=== PATIENT | male | born 1985 | race Caucasian/White ===

== ENCOUNTER 2022-12-04 18:04 | Emergency (ER) | payer BC ==
--- OUTSIDE RECORDS SUMMARY | 2022-12-04 18:09 | XMS REPORT | Continuity of Care Document ---
:1985 Author Organization [facility] t Address [address] [place] [address] [place] [id number] Care Team Providers Name Role Phone Jesika Alcala Primary Care Physician FOG_A_Provider Attending Clinician Unavailable Benjamin Paul Attending Clinician Unavailable YENIFER MENDIOLA Attending Clinician Unavailable Barrett Cooney Attending Clinician Unavailable Barrett Cooney Attending Clinician [phone] Benjamin Paul Attending Clinician [phone] Ese Abarca MA Attending Clinician Unavailable Nain Moore DO Attending Clinician Brandon Sierra MD Attending Clinician Joe Negrete MD Attending Clinician [phone] VENKAT NDIAYE Attending Clinician Unavailable FOG_A_Provider Admitting Clinician Unavailable Benjamin Paul Admitting Clinician Unavailable Barrett Cooney Admitting Clinician Unavailable Physician, No Primary or Family Admitting Clinician Unavaila ble Payers Payer Name Policy Type Policy Number Effective Date Expiration Date S just[place] [id number] 2021 00:[place]:00 [place] 2 [id number] 2021 00:00:00 Problems Condition Condition Condition Status Onset Resolution Last Treating Co mments Source Name Details Category Date Date Treatment Clinician Date Avascular Avascular Problem Active Aza chance necrosis Necrosis 04-08 Orthop e of the of the 00:00: dic [place] 00 Sports femoral Femoral Medicin epiphysis Epiphysis e Osteoarthr Osteoarthr Problem Active A zalea itis of itis of 04-08 Orthope left hip Left Hip 00:00: dic joint Joint 00 Sports Medicin e No known No known Disease Metho di active active st problems problems Hospit a l Cough Cough Diagnosis Active 2019-10-26 Mem oria Active 04:10:24 l Diagnosis 10/26/2019 Carmen [facility] Major Major Problem Active 2021-12-10 Memor ia depressive depressive 04:10:14 l disorder, disorder, Herm makayla single single episode, episode, unspecifie unspecifie d d Active Problem 12/10/2021 Carmen [facility] Anxiety Anxiety Problem Active 2021-12-10 Me moria disorder, disorder, 04:10:14 l unspecifie unspecifie He rmann d d Active Problem 12/10/2021 Carmen [facility] Obesity Obesity Problem Active 2021-12-10 Me moria (BMI (BMI 04:10:14 l 30-39.9) 30-39.9) Nikhil n Active Problem 12/10/2021 Carmen [facility] Acute URI Acute URI Diagnosis Active 2019-07-28 Memoria Active 05:10:24 l Diagnosis Basilio 07/28/2019 Carmen [facility] Acute Acute Diagnosis Active 2019-07-27 Mem oria left-sided left-sided 05:10:21 l low back low back Nikhil n pain with pain with left-sided left-sided sciatica sciatica Active Diagnosis 07/27/2019 Carmen [facility] Bronchitis Bronchiti Diagnosis Active 2019-10-24 Memoria s Active 04:10:07 l Diagnosis [place] 10/24/2019 Carmen [facility] Sorethroat Sorethroa Diagnosis Active 2019-10-14 Memoria t Active 04:10:02 l Diagnosis [place] 10/14/2019 Carmen [facility] Acute Acute Diagnosis Active 2019-10-14 Me moria non-recurr non-recurr 04:10:02 l ent ent [place] streptococ streptococ rocael rocael tonsilliti tonsilliti s s Active Diagnosis 10/14/2019 Carmen [facility] Tachycardi Tachycard Diagnosis Active 2020-05-26 Memoria a ia Active 04:10:09 l Diagnosis [place] 05/26/2020 Carmen [facility] Major Major Diagnosis Active 2019-07-28 Mem oria depressive depressive 05:10:25 l disorder disorder Nikhil n in partial in partial remission, remission, unspecifie unspecifie d whether d whether recurrent recurrent Active Diagnosis 07/28/2019 Carmen [facility] Acute gout Acute Diagnosis Active 2020-05-26 Memoria of right gout of 04:10:09 l foot, right [place] unspecifie foot, d cause unspecifie d cause Active Diagnosis 05/26/2020 Carmen [facility] Dizziness Dizziness Diagnosis Active 2020-05-07 Memoria Active 04:10:05 l Diagnosis Basilio 05/07/2020 Carmen [facility] Acute Acute Diagnosis Active 2021-12-10 Mem oria sinusitis, sinusitis, 04:10:14 l unspecifie unspecifie He rmann d d Active Diagnosis 12/10/2021 Carmen [facility] Essential Essential Problem Active 2021-12-10 Memoria hypertensi hypertensi 04:10:14 l on on Active Nikhil n Problem 12/10/2021 Carmen [facility] Obstructiv Obstructi Problem Active 2021-12-10 Memoria e sleep ve sleep 04:10:14 l apnea apnea [place] Active Problem 12/10/2021 Carmen [facility] Mixed Mixed Problem Active 2021-12-10 Memor ia hyperlipid hyperlipid 04:10:14 l emia emia Basilio Active Problem 12/10/2021 Carmen [facility] Seasonal Seasonal Diagnosis Active 2021-12-10 Memoria allergic allergic 04:10:14 l rhinitis, rhinitis, Herm makayla unspecifie unspecifie d trigger d trigger Active Diagnosis 12/10/2021 Carmen [facility] Lumbago Lumbago Problem Active 2021-12-10 Me moria with with 04:10:14 l sciatica, sciatica, Herm makayla right side right side Active Problem 12/10/2021 Carmen CARD Other Other Problem Active 2021-12-10 Memor ia chronic chronic 04:10:14 l pain pain Basilio Active Problem 12/10/2021 Carmen [facility] Prediabete Prediabet Diagnosis Active 2021-11-11 Memoria s es Active 04:10:13 l Diagnosis Basilio 11/11/2021 Carmen [facility] Allergies, Adverse Reactions, Alerts Allergy Allergy Status Severity Reaction(s) Onset Inactive Treating Comm ents Source Name Type Date Date Clinician No Known DA Active U 2021-07 [facility] 09-24 [place] [facility] 00:[facility] No Known DA Active U 2021-07 [facility] 2 Clear Allergie 00:00: Scott s 00 [facility] SEASONAL DA Active MO CONGESTION,E 2021-07 HC A ALLERGIE YE WATER - Clear S 00:00: Scott 00 [facility] N.K.D.A. N.K.D.A. Active Info Not Dao kecia Available 4-05 l 00:00: [place] 00 No Known DA Active U [facility]- [place] [facility] 00[facility] Social History Social Habit Start Date Stop Date Quantity Comments Source Sexual orientation 2021-11-13 Heterosexual Meth odist 11:54:26 (finding) Hospital Gender identity [facility] Sex Assigned At [birth year] Gnosticism 00:00:00 00:00:00 Hospital Smoking Status Start Date Stop Date Source Former Smoker [facility] Tobacco smoking consumption [facility] unknown Medications Ordered Filled Start Stop Current Ordering Indication Dosage Frequency Signature Comments Components Source Medication Medication Date Date Medication? Clinician (SIG) Name Name diclofenac- 2021- No [id number] 1{tbl} Q.5D Take 1 [facility] misoprostoL 01-[id number] ([facility] 00:00: 04:59 mouth 2 Hos carolee 50) 50-200 00 :00 (two) l mg-mcg EC times a tablet day for 30 days. diclofenac- 2021- No [id number] 1{tbl} Q.5D Take 1 [facility] misoprostoL 01-[address] ([facility] 00:00: 04:59 mouth 2 Hos carolee 50) 50-200 00 :00 (two) l mg-mcg EC times a tablet day for 30 days. diclofenac- 2021- No [id number] 1{tbl} Q.5D Take 1 [facility] misoprostoL 01-[address] ([facility] 00:00: 04:59 mouth 2 Hos carolee 50) 50-200 00 :00 (two) l mg-mcg EC times a tablet day for 30 days. Naprosyn Yes JESIKA MANNY 1 tablet Memoria 5-16 with food l 04:10: or milk as Basilio 14 needed Fish Oil Yes JESIKA MANNY 1 capsule Memoria 5-16 l 04:10: Basilio Bazan Vitamin C & Yes JESIKA MANNY as Memoria D3/Akanksha 5-16 directed l Hips 04:10: Basilio Bazan Promethazin Yes JESIKA MANNY 5 ml as Memoria e-DM 5-16 needed l 04:10: Basilio Bazan Bromfed DM Yes JESIKA MANNY 5 ml M emoria 5-16 l 04:10: Basilio Bazan Cyclobenzap Yes JESIKA MANNY 1-2 tablet Memoria rine HCl 5-16 as needed l 04:10: Basilio Bazan Nasacort AQ Yes JESIKA MANNY 1 spray in Memoria 5-16 each l 04:10: nostril Basilio BuPROPion Yes JESIKA MANNY TAKE ONE Memoria HCl (XL) 5-16 TABLET BY l 04:10: MOUTH Basilio 14 EVERY MORNING Symbicort Yes JESIKA MANNY 2 puffs Memoria 5-16 l 04:10: Basilio Bazan Tessalon Yes JESIKA MANNY 1 capsule Memoria 5-16 l 04:10: Basilio Bazan Levaquin Yes JESIKA MANNY 1 tab Me moria 5-16 l 04:10: Basilio Bazan Cefdinir Yes JESIKA MANNY 1 capsule Memoria 5-16 l 04:10: Basilio 14 ProAir HFA 0 Yes JESIKA MANNY 2 puffs Memoria 5-16 l 04:10: Basilio BusPIRone 0 Yes JESIKA MANNY 1 tablet Memoria HCl 5-16 l 04:10: Basilio Wellbutrin 0 Yes JESIKA MANNY 1 tablet Memoria XL 5-16 in the l 04:10: morning Basilio 14 Wellbutrin Yes JESIKA MANNY 1 tablet Memoria XL 5-16 in the l 04:10: morning Basilio 14 DASW) Lisinopril Yes JESIKA MANNY TAKE ONE Memoria 5-16 TABLET BY l 04:10: MOUTH [place] 14 DAILY Montelukast Yes JESIKA MANNY TAKE ONE Memoria Sodium 5-16 TABLET BY l 04:10: MOUTH Basilio 14 DAILY Iron Yes JESIKA MANNY 1 tablet Mem oria 5-16 l 04:10: Basilio Rosuvastati Yes JESIKA MANNY TAKE ONE Memoria n Calcium 5-16 TABLET BY l 04:10: MOUTH [place] 14 EVERY NIGHT AT BEDTIME Azelastine 0 Yes JESIKA MANNY 2 puff in Memoria HCl 5-16 each l 04:10: nostril Basilio 14 Medrol Yes JESIKA MANNY as Memor ia (José Miguel) 5-16 directed l 04:10: Basilio Naprosyn Yes JESIKA MANNY 1 tablet Memoria 5-16 with food l 04:10: or milk as [place] needed Fish Oil Yes JESIKA MANNY 1 capsule Memoria 5-16 l 04:10: Basilio 14 Vitamin C & 0 Yes JESIKA MANNY as Memoria D3/Akanksha 5-16 directed l Hips 04:10: Basilio Promethazin Yes JESIKA MANNY 5 ml as Memoria e-DM 5-16 needed l 04:10: Basilio Bromfed DM 0 Yes JESIKA MANNY 5 ml M emoria 5-16 l 04:10: Basilio Cyclobenzap Yes JESIKA MANNY 1-2 tablet Memoria rine HCl 5-16 as needed l 04:10: Basilio Bazan Promethazin 0 Yes JESIKA MANNY 5 ml as Memoria e-DM 5-16 needed l 04:10: Basilio Vitamin C & 0 Yes JESIKA MANNY as Memoria D3/Akanksha 5-16 directed l Hips 04:10: Basilio Bromfed DM 0 Yes JESIKA MANNY 5 ml M emoria 5-16 l 04:10: Basiilo Cyclobenzap Yes JESIKA MANNY 1-2 tablet Memoria rine HCl 5-16 as needed l 04:10: Basilio Nasacort AQ 0 Yes JESIKA MANNY 1 spray in Memoria 5-16 each l 04:10: nostril Basilio Naprosyn Yes JESIKA MANNY 1 tablet Memoria 5-16 with food l 04:10: or milk as Basilio needed Nasacort AQ Yes JESIKA MANNY 1 spray in Memoria 5-16 each l 04:10: nostril Basilio Fish Oil 0 Yes JESIKA MANNY 1 capsule Memoria 5-16 l 04:10: Basilio BuPROPion 0 Yes JESIKA MANNY TAKE ONE Memoria HCl (XL) 5-16 TABLET BY l 04:10: MOUTH Basilio 14 EVERY MORNING Symbicort 2021-0 Yes JESIKA MANNY 2 puffs Memoria 5-16 l 04:10: Basilio Tessalon 0 Yes JESIKA MANNY 1 capsule Memoria 5-16 l 04:10: Basilio Levaquin 0 Yes JESIKA MANNY 1 tab Me moria 5-16 l 04:10: Basilio Cefdinir 0 Yes JESIKA MANNY 1 capsule Memoria 5-16 l 04:10: Basilio BusPIRone 0 Yes JESIKA MANNY 1 tablet Memoria HCl 5-16 l 04:10: Basilio ProAir HFA 0 Yes JESIKA MANNY 2 puffs Memoria 5-16 l 04:10: Basilio BuPROPion 0 Yes JESIKA MANNY TAKE ONE Memoria HCl (XL) 5-16 TABLET BY l 04:10: MOUTH Basilio 14 EVERY MORNING Wellbutrin 0 Yes JESIKA MANNY 1 tablet Memoria XL 5-16 in the l 04:10: morning Wellbutrin 2021-0 Yes JESIKA MANNY 1 tablet Memoria XL 5-16 in the l 04:10: morning DAS) Lisinopril 0 Yes JESIKA MANNY TAKE ONE Memoria 5-16 TABLET BY l 04:10: MOUTH 14 DAILY Montelukast 0 Yes JESIKA MANNY TAKE ONE Memoria Sodium 5-16 TABLET BY l 04:10: MOUTH 14 DAILY Iron 0 Yes JESIKA MANNY 1 tablet Mem oria 5-16 l 04:10: [place] 14 Rosuvastati 0 Yes JESIKA MANNY TAKE ONE Memoria n Calcium 5-16 TABLET BY l 04:10: MOUTH 14 EVERY NIGHT AT BEDTIME Azelastine 0 Yes JESIKA MANNY 2 puff in Memoria HCl 5-16 each l 04:10: nostril 14 Medrol 0 Yes JESIKA MANNY as Memor ia (José Miguel) 5-16 directed l 04:10: Symbicort 0 Yes JESIKA MANNY 2 puffs Memoria 5-16 l 04:10: Tessalon 0 Yes JESIKA MANNY 1 capsule Memoria 5-16 l 04:10: Levaquin 0 Yes JESIKA MANNY 1 tab Me moria 5-16 l 04:10: Cefdinir 0 Yes JESIKA MANNY 1 capsule Memoria 5-16 l 04:10: ProAir HFA 2021-0 Yes JESIKA MANNY 2 puffs Memoria 5-16 l 04:10: BusPIRone 2021-0 Yes JESIKA MANNY 1 tablet Memoria HCl 5-16 l 04:10: Wellbutrin 2021-0 Yes JESIKA MANNY 1 tablet Memoria XL 5-16 in the l 04:10: morning Wellbutrin 2021-0 Yes JESIKA MANNY 1 tablet Memoria XL 5-16 in the l 04:10: morning 14 DASW) Lisinopril 0 Yes JESIKA MANNY TAKE ONE Memoria 5-16 TABLET BY l 04:10: MOUTH 14 DAILY Montelukast 0 Yes JESIKA MANNY TAKE ONE Memoria Sodium 5-16 TABLET BY l 04:10: MOUTH [place] 14 DAILY Iron Yes JESIKA MANNY 1 tablet Mem oria 5-16 l 04:10: [place] 14 Rosuvastati Yes JESIKA MANNY TAKE ONE Memoria n Calcium 5-16 TABLET BY l 04:10: MOUTH [place] 14 EVERY NIGHT AT BEDTIME Azelastine Yes JESIKA MANNY 2 puff in Memoria HCl 5-16 each l 04:10: nostril Basilio 14 Medrol Yes JESIKA MANNY as Memor ia (José Miguel) 5-16 directed l 04:10: [place] 14 docusate 2021- No [id number] 100mg Q.5D Take 1 [facility] sodium 4-29 05-[address] (COLACE) 00:00: 04:59 (100 mg Hospi ta 100 MG 00 :00 total) by l capsule mouth 2 (two) times a day as needed for constipati on for up to 10 days. docusate 2021-2021- No [id number] 100mg Q.5D Take 1 [facility] sodium 4-29 05-[address] (COLACE) 00:00: 04:59 (100 mg Hospi ta 100 MG 00 :00 total) by l capsule mouth 2 (two) times a day as needed for constipati on for up to 10 days. traMADoL 2021-2021- [place] [id number] 50mg Q6H Take 1 Metho di (Ultram) 50 - 05-08 tablet (50 s t mg tablet 00:00: 04:59 mg total) Ho spita 00 :00 by mouth l every 6 (six) hours as needed for moderate pain for up to 8 days .acute pain. traMADoL 2021-2021- No [id number] 50mg Q6H Take 1 Metho di (Ultram) 50 4-29 05-08 tablet (50 s t mg tablet 00:00: 04:59 mg total) Ho spita 00 :00 by mouth l every 6 (six) hours as needed for moderate pain for up to 8 days .acute pain. cephalexin 2021- No [id number] 500mg Q.5D Take 1 [facility] (Keflex) 11-23 05-[address] 500 MG 00:00: 04:59 (500 mg Hospita capsule 00 :00 total) by l mouth 2 (two) times a day for 7 days. cephalexin 2021-0 2021- No [id number] 500mg Q.5D Take 1 [facility] (Keflex) 11-23 05-[address] 500 MG 00:00: 04:59 (500 mg Hospita capsule 00 :00 total) by l mouth 2 (two) times a day for 7 days. Phentermine 2021-0 Yes JESIKA MANNY TAKE ONE Memoria HCl 3-08 TABLET BY l 00:00: MOUTH DAILY Phentermine 2021-0 Yes JESIKA MANNY TAKE ONE Memoria HCl 3-08 TABLET BY l 00:00: MOUTH DAILY Phentermine 2021-0 Yes JESIKA MANNY TAKE ONE Memoria HCl 3-08 TABLET BY l 00:00: MOUTH DAILY Adipex-P 2021-0 Yes JESIKA MANNY 1 tablet Memoria 9-30 l 00:00: Adipex-P 2021-0 Yes JESIKA MANNY 1 tablet Memoria 9-30 l 00:00: Adipex-P 2021-0 Yes JESIKA MANNY 1 tablet Memoria 9-30 l 00:00: Adipex-P 2021-0 Yes JESIKA MANNY 1 tablet Memoria 9-17 l 00:00: Adipex-P 2021-0 Yes JESIKA MANNY 1 tablet Memoria 9-17 l 00:00: Adipex-P 2021-0 Yes JESIKA MANNY 1 tablet Memoria 9-17 l 00:00: Adipex-P 2021-0 Yes JESIKA MANNY 1 tablet Memoria 9-16 l 04:10: Adipex-P 2021-0 Yes JESIKA MANNY 1 tablet Memoria 9-16 l 04:10: Adipex-P 2021-0 Yes JESIKA MANNY 1 tablet Memoria 9-16 l 04:10: Singulair 2021-0 Yes JESIKA MANNY 1 tablet Memoria 8-03 l 04:10: Crestor 2021-0 Yes JESIKA MANNY 1 tablet Memoria 8-03 l 04:10: Adipex-P 2021-0 Yes JESIKA MANNY 1 tablet Memoria 8-03 l 04:10: Singulair 2020-0 Yes JESIKA MANNY 1 tablet Memoria 8-03 l 04:10: Crestor 2020-0 Yes JESIKA MANNY 1 tablet Memoria 8-03 l 04:10: Adipex-P 2020-0 Yes JESIKA MANNY 1 tablet Memoria 8-03 l 04:10: Singulair 2020-0 Yes JESIKA MANNY 1 tablet Memoria 8-03 l 04:10: Crestor 0 Yes JESIKA MANNY 1 tablet Memoria 8-03 l 04:10: Adipex-P 2020-0 Yes JESIKA MANNY 1 tablet Memoria 8-03 l 04:10: Wellbutrin 0 Yes JESIKA MANNY 1 tablet Memoria XL 6-30 in the l 00:00: morning Wellbutrin 0 Yes JESIKA MANNY 1 tablet Memoria XL 6-30 in the l 00:00: morning Wellbutrin 0 Yes JESIKA MANNY 1 tablet Memoria XL 6-30 in the l 00:00: morning ProAir HFA 2020- Yes JESIKA MANNY 2 puffs Memoria 0-30 l 04:10: Iron 2020- Yes JESIKA MANNY 1 tablet Mem oria 0-30 l 04:10: Lisinopril 2020- Yes JESIKA MANNY 1 tablet Memoria 0-30 l 04:10: Lexapro 2020- Yes JESIKA MANNY 1 tablet Memoria 0-30 l 04:10: ProAir HFA 2020- Yes JESIKA MANNY 2 puffs Memoria 0-30 l 04:10: Iron 2020- Yes JESIKA MANNY 1 tablet Mem oria 0-30 l 04:10: Lisinopril 2020- Yes JESIKA MANNY 1 tablet Memoria 0-30 l 04:10: Lexapro 2020- Yes JESIKA MANNY 1 tablet Memoria 0-30 l 04:10: ProAir HFA 2020- Yes JESIKA MANNY 2 puffs Memoria 0-30 l 04:10: Iron 2020-1 Yes JESIKA MANNY 1 tablet Mem oria 0-30 l 04:10: Lisinopril 2020-1 Yes JESIKA MANNY 1 tablet Memoria 0-30 l 04:10: Lexapro 2020- Yes JESIKA MANNY 1 tablet Memoria 0-30 l 04:10: Crestor 2019- Yes JESIKA MANNY 1 tablet Memoria 0-11 l 04:10: Lisinopril 2020- Yes JESIKA MANNY 1 tablet Memoria 0-11 l 04:10: Crestor 2020- Yes JESIKA MANNY 1 tablet Memoria 0-11 l 04:10: Lisinopril 2020- Yes JESIKA MANNY 1 tablet Memoria 0-11 l 04:10: Crestor 2019- Yes JESIKA MANNY 1 tablet Memoria 0-11 l 04:10: Lisinopril 2020- Yes JESIKA MANNY 1 tablet Memoria 0-11 l 04:10: Wellbutrin 2020- Yes JESIKA MANNY 1 tablet Memoria XL 0-02 in the l 00:00: morning Wellbutrin 2020-1 Yes JESIKA MANNY 1 tablet Memoria XL 0-02 in the l 00:00: morning Wellbutrin 2020-1 Yes JESIKA MANNY 1 tablet Memoria XL 0-02 in the l 00:00: morning Lisinopril 2020-0 Yes JESIKA MANNY 1 tablet Memoria 3-19 l 04:10: Lisinopril 2020-0 Yes JESIKA MANNY 1 tablet Memoria 3-19 l 04:10: Lisinopril 2020-0 Yes JESIKA MANNY 1 tablet Memoria 3-19 l 04:10: Iron 2020-0 Yes JESIKA MANNY 1 tablet Mem oria 1-01 l 05:10: Iron 2020-0 Yes JESIKA MANNY 1 tablet Mem oria 1-01 l 05:10: Iron 2020-0 Yes JESIKA MANNY 1 tablet Mem oria 1-01 l 05:10: tramadol 50 tramadol 50 No tramadol Mary mg tablet mg tablet 50 mg Orth ope tablet dic Sports Medicin e acetaminoph acetaminoph No acetaminop Mary en 300 en 300 hen 300 Orthope mg-codeine mg-codeine mg-codeine dic 30 mg 30 mg 30 mg Sports tablet tablet tablet Medicin e albuterol albuterol No albuterol Mary sulfate HFA sulfate HFA sulfate Orthope 90 90 HFA 90 dic mcg/actuati mcg/actuati mcg/actuat Sports on aerosol on aerosol ion Med icin inhaler inhaler aerosol e inhaler aspirin 81 aspirin 81 No aspirin 81 Mary mg mg mg Orthope tablet,james tablet,james tablet,del dic yed release yed release ayed S ports release Medicin e azelastine azelastine No azelastine Mary 137 mcg 137 mcg 137 mcg Orthop e (0.1 %) (0.1 %) (0.1 %) dic nasal spray nasal spray nasal Sports aerosol aerosol spray Medicin aerosol e azithromyci azithromyci No azithromyc Mary n 250 mg n 250 mg in 250 mg Or thope tablet tablet tablet dic Sports Medicin e buspirone buspirone No buspirone Mary 10 mg 10 mg 10 mg Orthope tablet tablet tablet dic Sports Medicin e cyclobenzap cyclobenzap No cyclobenza Mary rine 5 mg rine 5 mg jeanine 5 mg Orthope tablet tablet tablet dic Sports Medicin e diclofenac diclofenac No diclofenac Mary potassium potassium potassium Orthope 50 mg 50 mg 50 mg dic tablet tablet tablet Sports Medicin e doxycycline doxycycline No doxycyclin Mary hyclate 100 hyclate 100 e hyclate Orthope mg capsule mg capsule 100 mg d ic capsule Sports Medicin e hydrocodone hydrocodone No hydrocodon Mary 10 10 e 10 Orthope mg-acetamin mg-acetamin mg-acetami dic ophen 325 ophen 325 nophen 325 Sports mg tablet mg tablet mg tablet Medicin e lisinopril lisinopril No lisinopril Mary 20 mg 20 mg 20 mg [facility] tablet tablet tablet dic Sports Medicin e meloxicam meloxicam No meloxicam Mary 15 mg 15 mg 15 mg [facility] tablet tablet tablet dic Sports Medicin e methocarbam methocarbam No methocarba Mary ol 500 mg ol 500 mg mol 500 mg [facility] tablet tablet tablet dic Sports Medicin e methylpredn methylpredn No methylpred Mary isolone 4 isolone 4 nisolone 4 Orthope mg tablets mg tablets mg tablets dic in a dose in a dose in a dose Sports pack pack pack Medicin e rosuvastati rosuvastati No rosuvastat Mary n 10 mg n 10 mg in 10 mg Ortho pe tablet tablet tablet dic Sports Medicin e sulfamethox sulfamethox No sulfametho Mary azole 800 azole 800 xazole 800 [facility]ope mg-trimetho mg-trimetho mg-trimeth dic prim 160 mg prim 160 mg oprim 160 Sports tablet tablet mg tablet Medici n e tramadol 50 tramadol 50 No tramadol Mary mg tablet mg tablet 50 mg Orth ope tablet dic Sports Medicin e acetaminoph acetaminoph No acetaminop Mary en 300 en 300 hen 300 [facility] mg-codeine mg-codeine mg-codeine dic 30 mg 30 mg 30 mg Sports tablet tablet tablet Medicin e albuterol albuterol No albuterol Mary sulfate HFA sulfate HFA sulfate Orthope 90 90 HFA 90 dic mcg/actuati mcg/actuati mcg/actuat Sports on aerosol on aerosol ion Med icin inhaler inhaler aerosol e inhaler aspirin 81 aspirin 81 No aspirin 81 Mary mg mg mg [facility] tablet,james tablet,james tablet,del dic yed release yed release ayed S ports release Medicin e azelastine azelastine No azelastine Mary 137 mcg 137 mcg 137 mcg Orthop e (0.1 %) (0.1 %) (0.1 %) dic nasal spray nasal spray nasal Sports aerosol aerosol spray Medicin aerosol e azithromyci azithromyci No azithromyc Mary n 250 mg n 250 mg in 250 mg Or thope tablet tablet tablet dic Sports Medicin e buspirone buspirone No buspirone Mary 10 mg 10 mg 10 mg [facility] tablet tablet tablet dic Sports Medicin e cyclobenzap cyclobenzap No cyclobenza Mary rine 5 mg rine 5 mg jeanine 5 mg [facility] tablet tablet tablet dic Sports Medicin e diclofenac diclofenac No diclofenac Mary potassium potassium potassium [facility] 50 mg 50 mg 50 mg dic tablet tablet tablet Sports Medicin e doxycycline doxycycline No doxycyclin Mary hyclate 100 hyclate 100 e hyclate [facility] mg capsule mg capsule 100 mg d ic capsule Sports Medicin e hydrocodone hydrocodone No hydrocodon Mary 10 10 e 10 [facility] mg-acetamin mg-acetamin mg-acetami dic ophen 325 ophen 325 nophen 325 Sports mg tablet mg tablet mg tablet Medicin e lisinopril lisinopril No lisinopril Mary 20 mg 20 mg 20 mg [facility] tablet tablet tablet dic Sports Medicin e meloxicam meloxicam No meloxicam Mary 15 mg 15 mg 15 mg [facility] tablet tablet tablet dic Sports Medicin e methocarbam methocarbam No methocarba Mary ol 500 mg ol 500 mg mol 500 mg [facility] tablet tablet tablet dic Sports Medicin e methylpredn methylpredn No methylpred Mary isolone 4 isolone 4 nisolone 4 [facility] mg tablets mg tablets mg tablets dic in a dose in a dose in a dose Sports pack pack pack Medicin e rosuvastati rosuvastati No rosuvastat Mary n 10 mg n 10 mg in 10 mg Ortho pe tablet tablet tablet dic Sports Medicin e sulfamethox sulfamethox No sulfametho Mary azole 800 azole 800 xazole 800 [facility] mg-trimetho mg-trimetho mg-trimeth dic prim 160 mg prim 160 mg oprim 160 Sports tablet tablet mg tablet Medici n e tramadol 50 tramadol 50 No tramadol Mary mg tablet mg tablet 50 mg Orth ope tablet dic Sports Medicin e azelastine azelastine No azelastine Mary 137 mcg 137 mcg 137 mcg Orthop e (0.1 %) (0.1 %) (0.1 %) dic nasal spray nasal spray nasal Sports aerosol aerosol spray Medicin aerosol e buspirone buspirone No buspirone Mary 10 mg 10 mg 10 mg [facility] tablet tablet tablet dic Sports Medicin e lisinopril lisinopril No lisinopril Mary 20 mg 20 mg 20 mg [facility] tablet tablet tablet dic Sports Medicin e rosuvastati rosuvastati No rosuvastat Mary n 10 mg n 10 mg in 10 mg Ortho pe tablet tablet tablet dic Sports Medicin e azelastine azelastine No azelastine Mary 137 mcg 137 mcg 137 mcg Orthop e (0.1 %) (0.1 %) (0.1 %) dic nasal spray nasal spray nasal Sports aerosol aerosol spray Medicin aerosol e bupropion bupropion No bupropion Mary HCl XL 150 HCl XL 150 HCl XL 150 [facility] mg 24 hr mg 24 hr mg 24 hr dic tablet, tablet, tablet, Sports extended extended extended Med icin release release release e buspirone buspirone No buspirone Mary 10 mg 10 mg 10 mg [facility] tablet tablet tablet dic Sports Medicin e cefdinir cefdinir No cefdinir Aza chance 300 mg 300 mg 300 mg [facility] capsule capsule capsule dic Sports Medicin e cephalexin cephalexin No cephalexin Mary 500 mg 500 mg 500 mg [facility] capsule capsule capsule dic Sports Medicin e diclofenac diclofenac No diclofenac Mary 50 50 50 Orthope mg-misopros mg-misopros mg-misopro dic clair 200 mcg clair 200 mcg stol 200 Sports tablet,imme tablet,imme mcg M edicin d.and d.and tablet,imm e delayed delayed ed.and release release delayed release lisinopril lisinopril No lisinopril Mary 20 mg 20 mg 20 mg Orthope tablet tablet tablet dic Sports Medicin e methylpredn methylpredn No methylpred Mary isolone 4 isolone 4 nisolone 4 Orth[facility] mg tablets mg tablets mg tablets dic in a dose in a dose in a dose Sports pack pack pack Medicin e moxifloxaci moxifloxaci No moxifloxac Mary n 0.5 % eye n 0.5 % eye in 0.5 % Orthope drops drops eye drops dic Sports Medicin e rosuvastati rosuvastati No rosuvastat Mary n 10 mg n 10 mg in 10 mg Ortho pe tablet tablet tablet dic Sports Medicin e tramadol 50 tramadol 50 No tramadol Mary mg tablet mg tablet 50 mg Orth ope tablet dic Sports Medicin e azelastine azelastine No azelastine Mary 137 mcg 137 mcg 137 mcg Orthop e (0.1 %) (0.1 %) (0.1 %) dic nasal spray nasal spray nasal Sports aerosol aerosol spray Medicin aerosol e buspirone buspirone No buspirone Mary 10 mg 10 mg 10 mg Orthope tablet tablet tablet dic Sports Medicin e lisinopril lisinopril No lisinopril Mary 20 mg 20 mg 20 mg [facility] tablet tablet tablet dic Sports Medicin e rosuvastati rosuvastati No rosuvastat Mary n 10 mg n 10 mg in 10 mg Ortho pe tablet tablet tablet dic Sports Medicin e acetaminoph acetaminoph No acetaminop Mary en 300 en 300 hen 300 Orthope mg-codeine mg-codeine mg-codeine dic 30 mg 30 mg 30 mg Sports tablet tablet tablet Medicin e albuterol albuterol No albuterol Mary sulfate HFA sulfate HFA sulfate Orthope 90 90 HFA 90 dic mcg/actuati mcg/actuati mcg/actuat Sports on aerosol on aerosol ion Med icin inhaler inhaler aerosol e inhaler azelastine azelastine No azelastine Mary 137 mcg 137 mcg 137 mcg Orthop e (0.1 %) (0.1 %) (0.1 %) dic nasal spray nasal spray nasal Sports aerosol aerosol spray Medicin aerosol e azithromyci azithromyci No azithromyc Mary n 250 mg n 250 mg in 250 mg Or thope tablet tablet tablet dic Sports Medicin e buspirone buspirone No buspirone Mary 10 mg 10 mg 10 mg Orthope tablet tablet tablet dic Sports Medicin e cyclobenzap cyclobenzap No cyclobenza Mary rine 5 mg rine 5 mg jeanine 5 mg Orthope tablet tablet tablet dic Sports Medicin e diclofenac diclofenac No diclofenac Mary potassium potassium potassium Orthope 50 mg 50 mg 50 mg dic tablet tablet tablet Sports Medicin e lisinopril lisinopril No lisinopril Mary 20 mg 20 mg 20 mg Orthope tablet tablet tablet dic Sports Medicin e methylpredn methylpredn No methylpred Mary isolone 4 isolone 4 nisolone 4 Orthope mg tablets mg tablets mg tablets dic in a dose in a dose in a dose Sports pack pack pack Medicin e rosuvastati rosuvastati No rosuvastat Mary n 10 mg n 10 mg in 10 mg Ortho pe tablet tablet tablet dic Sports Medicin e sulfamethox sulfamethox No sulfametho Mary azole 800 azole 800 xazole 800 Orth[facility] mg-trimetho mg-trimetho mg-trimeth dic prim 160 mg prim 160 mg oprim 160 Sports tablet tablet mg tablet Medici n e Vital Signs Vital Name Observation Time Observation Value Comments Source Height 2022-09-06 00:00:00 69 [in_i] [facility] BMI (Body Mass 2022-09-06 00:00:00 33.2 kg/m2 [facility] Index) Sports Medicine Body Weight 2022-09-06 00:00:00 225 [lb_av] [facility] Height 2022-08-09 00:00:00 69 [in_i] [facility] BMI (Body Mass 2022-08-09 00:00:00 33.2 kg/m2 [facility] Index) Sports Medicine Body Weight 2022-08-09 00:00:00 225 [lb_av] [facility] Height 2022-04-17 00:00:00 69 [in_i] [facility] BMI (Body Mass 2022-04-17 00:00:00 33.2 kg/m2 [facility] Index) Sports Medicine Body Weight 2022-04-17 00:00:00 225 [lb_av] [facility] Height 2022-04-10 00:00:00 69 [in_i] [facility] BMI (Body Mass 2022-04-10 00:00:00 33.2 kg/m2 [facility] Index) Sports Medicine Body Weight 2022-04-10 00:00:00 225 [lb_av] [facility] Body height 2022-01-25 15:07:[address] [facility] Body weight 2022-01-25 15:07:[address] [facility] BMI 2022-01-25 15:07:00 30.85 kg/m2 [facility] Weight 2021-10-30 16:20:00 [facility] Height 2021-10-30 16:20:00 [facility] Temperature Oral (F) 2021-10-30 16:20:00 97.3 F [facility] Rate 2021-10-30 16:20:00 [facility] Diastolic (mm Hg) 2021-10-30 16:20:00 [facility] [place] Systolic (mm Hg) 2021-10-30 16:20:00 [facility] Weight 2021-10-02 13:00:00 [facility] Height 2021-10-02 13:00:00 [facility] Temperature Oral (F) 2021-10-02 13:00:00 97.3 F [facility] Heart Rate 2021-10-02 13:00:00 [facility] Diastolic (mm Hg) 2021-10-02 13:00:00 [facility] Systolic (mm Hg) 2021-10-02 13:00:00 [facility] Weight 2021-04-13 15:20:00 [facility] Height 2021-04-13 15:20:00 [facility] Temperature Oral (F) 2021-04-13 15:20:00 99.1 F [facility] Heart Rate 2021-04-13 15:20:00 [facility] Diastolic (mm Hg) 2021-04-13 15:20:00 [facility] [place] Systolic (mm Hg) 2021-04-13 15:20:00 [facility] [place] Weight 2021-01-24 15:00:00 [facility] Height 2021-01-24 15:00:00 [facility] Temperature Oral (F) 2021-01-24 15:00:00 98.7 F [facility] Rate 2021-01-24 15:00:00 [facility] Diastolic (mm Hg) 2021-01-24 15:00:00 [facility] [place] Systolic (mm Hg) 2021-01-24 15:00:00 [facility] [place] Diastolic (mm Hg) 2020-04-28 19:40:00 [facility] [place] Systolic (mm Hg) 2020-04-28 19:40:00 [facility] [place] Height 2020-04-28 19:40:00 [facility] Temperature Oral (F) 2020-04-28 19:40:00 100.4 F [facility] Heart Rate 2020-04-28 19:40:00 [facility] Weight 2020-04-19 13:10:00 [facility] Height 2020-04-19 13:10:00 [facility] Temperature Oral (F) 2020-04-19 13:10:00 99.0 F [facility] Heart Rate 2020-04-19 13:10:00 [facility] Diastolic (mm Hg) 2020-04-19 13:10:00 [facility] [place] Systolic (mm Hg) 2020-04-19 13:10:00 [facility] Heart Rate 2019-10-13 13:30:00 [facility] Diastolic (mm Hg) 2019-10-13 13:30:00 [facility] [place] Systolic (mm Hg) 2019-10-13 13:30:00 [facility] [place] Weight 2019-10-13 13:30:00 [facility] Height 2019-10-13 13:30:00 [facility] Temperature Oral (F) 2019-10-13 13:30:00 99.0 F [facility] Weight 2019-07-27 14:10:00 [facility] Height 2019-07-27 14:10:00 [facility] Temperature Oral (F) 2019-07-27 14:10:00 98.0 F [facility] Heart Rate 2019-07-27 14:10:00 [facility] Diastolic (mm Hg) 2019-07-27 14:10:00 [facility] Systolic (mm Hg) 2019-07-27 14:10:00 [facility] Weight 2019-07-22 14:10:00 [facility] Height 2019-07-22 14:10:00 [facility] Temperature Oral (F) 2019-07-22 14:10:00 98.3 F [facility] Heart Rate 2019-07-22 14:10:00 [facility] Diastolic (mm Hg) 2019-07-22 14:10:00 [facility] [place] Systolic (mm Hg) 2019-07-22 14:10:00 [facility] Procedures Procedure Date / Time Performing Clinician Source Performed XR, hip + pelvis, 2022-09-06 00:00:00 Mary Vann hopedic unilateral, 2 or 3 view Sports M edicine [id number] 2022-07-24 00:00:00 [facility] Total Replacement of Left 2022-07-24 00:00:00 Rehan bills Orthopedic Hip Joint Sports Medicine RADEX SPI LUMBOSAC COMPL 2022-04-10 00:00:00 Fernando fletcher Orthopedic W/BENDING VIEWS Sports Medicine XR, thoracic spine, 2 view 2022-04-10 00:00:00 Kaylie gallo Orthopedic Sports Medicine MRI, lumbar spine, w/o 2022-04-10 00:00:00 David rosas Orthopedic contrast Sports Medicine XR, hip + pelvis, 2022-04-08 00:00:00 Mary Orjaxson hopedic unilateral, 2 or 3 view Sports M edicine POST-VAS SPERM EVALUATION, 2022-03-25 20:03:00 EmelynJoe [facility] QUAL Jair US GUIDED INJECTION 2022-02-21 21:04:08 [facility] RI ARTHROCENTESIS 2022-02-21 20:00:00 [facility] ASPIR&/INJ MAJOR JT/BURSA W/US XR PELVIS 1 OR 2 VW 2022-01-25 15:11:43 Brandon Sierra [facility] Excision of Lipoma Mary Orthop edic Sports Medicine Hemorrhoidectomy [facility] Orth[facility] ic Sports Medicine Plan of Care Planned Activity Planned Date Details Comments Source Future Scheduled Test 2022-10-31 Hepatitis C [facility] 12:51:05 screening (procedure) [code = 730431974] Future Scheduled Test 2022-10-31 COVID-19 VACCINE [facility] 12:51:05 (3 - Booster for Moderna series) [code = COVID-19 VACCINE (3 - Booster for Moderna series)] Future Scheduled Test 2022-10-31 INFLUENZA VACCINE [facility] 12:51:05 [code = INFLUENZA VACCINE] Future Scheduled Test 2022-07-11 Hepatitis C [facility] 07:07:15 screening (procedure) [code = 322793712] Future Scheduled Test 2022-07-11 COVID-19 VACCINE [facility] 07:07:15 (3 - Booster for Moderna series) [code = COVID-19 VACCINE (3 - Booster for Moderna series)] Future Scheduled Test 2022-07-11 INFLUENZA VACCINE [facility] 07:07:15 [code = INFLUENZA VACCINE] Future Scheduled Test 2022-04-12 HEPATITIS B [facility] 09:08:03 VACCINES (1 of 3 - 3-dose series) [code = HEPATITIS B VACCINES (1 of 3 - 3-dose series)] Future Scheduled Test 2022-04-12 Hepatitis C [facility] 09:08:03 screening (procedure) [code = 629786833] Future Scheduled Test 2022-04-12 COVID-19 VACCINE [facility] 09:08:03 (3 - Booster for Moderna series) [code = COVID-19 VACCINE (3 - Booster for Moderna series)] Future Scheduled Test 2022-04-12 INFLUENZA VACCINE [facility] 09:08:03 [code = INFLUENZA VACCINE] Instructions [facility] Sports Medicine Encounters Start End Encounter Admission Attending Care Care Encounter Source Date/Time Date/Time Type Type Clinicians Facility Department ID 2022-12-04 Outpatient [id number] Memoria 18:07:07 [id number] Basilio [id number] [id number] 2022-07-24 Outpatient [id number] Memoria 10:00:53 [id number] Basilio [id number] 9311-09-19 Outpatient [id number] Memoria 09:17:40 [id number] Basilio [id number] 2022-09-06 2022-09-06 Benjamin Anderson AOPREETHI [place] - Ortho [id number] Mary 00:00:00 00:00:00 So Paul MD: [id number] FOG_[place]c [facility] [place] [address] , Ph. [phone] 2022-08-15 2022-08-15 Outpatient FOG_A_Provi AOSM AOSM [id number] Mary 00:00:00 00:00:00 terra [id number] Orthop e dic Sports Medicin e 2022-08-15 2022-08-15 Outpatient FOG_A_Provi AOSM AOSM [id number] Mary 00:00:00 00:00:00 terra [id number] Orthop e dic Sports Medicin e 2022-08-09 2022-08-09 Bnejamin N AOSM [place] - [place] [id number] Mary 00:00:00 00:00:00 So Paul MD: 7401 FOG_Ofc dic [facility] [place] [address] , Ph. [phone] 2022-07-31 2022-07-31 Outpatient FOG_A_Provi AOSM AOSM [id number] Mary 00:00:00 00:00:00 terra [id number] Orthop e dic Sports Medicin e 2022-07-31 2022-07-31 Outpatient FOG_A_Provi AOSM AOSM [id number] Mary 00:00:00 00:00:00 terra [id number] Orthop e dic Sports Medicin e 2022-07-31 2022-07-31 Outpatient FOG_A_Provi AOSM AOSM [id number] Mary 00:00:00 00:00:00 terra [id number] Orthop e dic Sports Medicin e 2022-07-30 2022-07-30 Outpatient FOG_A_Provi AOSM AOSM [id number] Mary 00:00:00 00:00:00 terra [id number] Orthop e dic Sports Medicin e 2022-07-26 2022-07-26 Outpatient FOG_A_Provi AOSM AOSM [id number] Mary 00:00:00 00:00:00 terra [id number] Orthop e dic Sports Medicin e 2022-07-24 2022-07-25 [facility] [id number] [facility] 09:59:00 13:15:00 Benjamin 10 [place] [facility] 2022-07-24 2022-07-24 Benjamin N [place] - [place] [id number] Mary 00:00:00 00:00:00 So Paul MD: [id number] FOG_Surgery dic [facility] [place] [address] , Ph. [phone] 2022-07-19 2022-07-19 Outpatient MARIANNE Paul LABO [id number] [facility] 11:47:00 11:47:00 Benjamin 21 [facility] 2022-07-17 2022-07-17 Outpatient FOG_A_Provi AOSM AOSM [id number] Mary 00:00:00 00:00:00 terra [id number] Orthop e dic Sports Medicin e 2022-07-16 2022-07-16 Outpatient FOG_A_Provi AOSM AOSM [id number] Mary 00:00:00 00:00:00 terra [id number] Orthop e dic Sports Medicin e 2022-05-28 2022-05-28 Outpatient MAURY, FB RADHA 7516 FB 09:42:00 14:30:00 YENIFER 2022-05-20 2022-05-20 Outpatient FOG_A_Provi AOSM AOSM [id number] Mary 00:00:00 00:00:00 terra [id number] Orthop e dic Sports Medicin e 2022-05-15 2022-05-15 Outpatient FOG_A_Provi AOSM AOSM [id number] Mary 00:00:00 00:00:00 terra [id number] Orthop e dic Sports Medicin e 2022-04-17 2022-04-17 Outpatient FOG_A_Provi AOSM AOSM [id number] Mary 00:00:00 00:00:00 terra [id number] Orthop e dic Sports Medicin e 2022-04-17 2022-04-17 Fer Dukes AOSM [place] - Ortho 21 Mary 00:00:00 00:00:00 AIDAN Diane: So Mar [address] FOG_Ofc dic [facility] [place] [address] , Ph. [phone] 2022-04-16 2022-04-16 Outpatient FOG_A_Provi AOSM AOSM [id number] Mary 00:00:00 00:00:00 terra [id number] Orthop e dic Sports Medicin e 2022-04-15 2022-04-15 [facility] [id number] [facility] 09:14:00 09:14:00 Barrett Martinez [facility] 2022-04-10 2022-04-10 Outpatient FOG_A_Provi AOSM AOSM [id number] Mary 00:00:00 00:00:00 terra [id number] Orthop e dic Sports Medicin e 2022-04-10 2022-04-10 Outpatient RENZO Cooney AOSM [id number] 00:00:00 00:00:00 Barrett Meneses [id number] 2022-04-10 2022-04-10 Barrett MORGANSM [place] - Ortho 2021 [id number] Mary 00:00:00 00:00:00 Ivet Mar MD: 7401 FOG_Ofc dic [facility] [place] [address] , Ph. [phone] 2022-04-09 2022-04-09 Outpatient FOG_A_Provi AOSM AOSM [id number] Mary 00:00:00 00:00:00 terra [id number] Orthop e dic Sports Medicin e 2022-04-08 2022-04-08 Outpatient FOG_A_Provi AOSM AOSM [id number] Mary 00:00:00 00:00:00 terra [id number] Orthop e dic Sports Medicin e 2022-04-08 2022-04-08 Outpatient Humberto, AOSM AOSM [id number] 00:00:00 00:00:00 Benjamin Anderson [id number] 2022-04-08 2022-04-08 Benjamin Anderson AOSM [place] - Ortho [id number] Mary 00:00:00 00:00:00 So Paul MD: 7401 FOG_Ofc dic [facility] Sp[place] [address] , Ph. [phone] 2022-04-05 2022-04-05 Outpatient FOG_A_Provi AOSM AOSM [id number] Mary 00:00:00 00:00:00 terra [id number] Orthop e dic Sports Medicin e 2022-03-28 2022-03-28 Telephone Tevin 1.2.840.1 [id number] Methodi 00:00:00 00:00:[address] 3.430.2.7 Hospit a .3.111193 l .8 2022-03-28 2022-03-28 Telephone Tevin 1.2.840.1 [id number] 21 [id number] Methodi 00:00:00 00:00:[address] 3.430.2.7 Hospit a .3.568220 l .8 2022-03-12 2022-03-12 Outpatient FOG_A_Provi AOSM AOSM [id number] Mary 00:00:00 00:00:00 terra [id number] Orthop e dic Sports Medicin e 2022-02-21 2022-02-21 Office Nain Moore 1.2.840.1 [id number] 21 [id number] Methodi 15:00:00 15:38:40 [address] A. [address]3213.1.[address] 3.430.2.7 Hospit a .3.662708 l .8 2022-02-21 2022-02-21 Office Nain Moore 1.2.840.1 [id number] 21 [id number] Methodi 15:00:00 15:38:40 [place] A. [address]237.1.[address] 3.430.2.7 Hospit a .3.738019 l .8 2022-02-21 2022-02-21 Outpatient NAIN MOORE [facility] 635 [id number] [place] 00:00:00 00:00:[address] 2022-02-21 2022-02-21 Travel 1.2.840.1 1.2.491.423 5228 [id number] Methodi 00:00:00 00:00:[address] 3.430.2.7 0.2.7.3.698 Ho spita .3.505553 084.8 l .8 2022-02-21 2022-02-21 Travel 1.2.840.1 1.2.636.240 3788 508491 Methodi 00:00:00 00:00:[address] 3.430.2.7 0.2.7.3.698 Ho spita .3.907286 084.8 l .8 2022-02-13 2022-02-13 Travel 1.2.840.1 1.2.741.562 7219 312027 Methodi 00:00:00 00:00:[address] 3.430.2.7 0.2.7.3.698 Ho spita .3.676086 084.8 l .8 2022-02-13 2022-02-13 Travel 1.2.840.1 1.2.427.400 0785 619206 Methodi 00:00:00 00:00:[address] 3.430.2.7 0.2.7.3.698 Ho spita .3.419075 084.8 l .8 2022-01-25 2022-01-25 Office Sierra, Brandon 1.2.840.1 [id number] 21 [id number] Methodi 10:10:00 10:46:37 [address]. [address]134.1.[address] 3.430.2.7 Hospit a .3.435294 l .8 2022-01-25 2022-01-25 Office Sierra, Brandon 1.2.840.1 [id number] 21 [id number] Methodi 10:10:00 10:46:37 Visit A. [address]149.1.[address] 3.430.2.7 Hospit a .3.473022 l .8 2022-01-25 2022-01-25 Travel 1.2.840.1 1.2.632.529 0278 017801 Methodi 00:00:00 00:00:[address] 3.430.2.7 0.2.7.3.698 Ho spita .3.370898 084.8 l .8 2022-01-25 2022-01-25 Outpatient BRANDON SIERRA [facility] [id number] [place] 00:00:00 00:00:[address] 2022-01-25 2022-01-25 Travel 1.2.840.1 1.2.064.432 3178 375491 Methodi 00:00:00 00:00:[address] 3.430.2.7 0.2.7.3.698 Ho spita .3.230881 084.8 l .8 2022-01-14 2022-01-14 Travel 1.2.840.1 1.2.019.610 4223 731122 Methodi 00:00:00 00:00:[address] 3.430.2.7 0.2.7.3.698 Ho spita .3.631429 084.8 l .8 2022-01-14 2022-01-14 Travel 1.2.840.1 1.2.154.076 6219 443182 Methodi 00:00:00 00:00:[address] 3.430.2.7 0.2.7.3.698 Ho spita .3.762857 084.8 l .8 2021-11-23 2021-11-23 Procedure Caden, 1.2.840.1 [id number] 2099 125178 Methodi 10:00:00 11:29:18 visit Joe 58865.1.[address] Jair 3.430.2.7 Hospit a .3.590776 l .8 2021-11-23 2021-11-23 Travel 1.2.840.1 1.2.088.986 7146 054943 Methodi 00:00:00 00:00:[address] 3.430.2.7 0.2.7.3.698 Ho spita .3.874855 084.8 l .8 2021-11-20 2021-11-20 Office Muchluis, 1.2.840.1 [id number] 171824 5238 Methodi 09:45:00 11:31:05 Visit Joe 59127.1.[address] Jair 3.430.2.7 Hospit a .3.218745 l .8 2021-11-20 2021-11-20 Travel 1.2.840.1 1.2.721.567 4791 622544 Methodi 00:00:00 00:00:[address] 3.430.2.7 0.2.7.3.698 Ho spita .3.326469 084.8 l .8 2021-10-30 2021-10-30 Outpatient [facility] [id number] [facility] 11:20:00 11:20:00 PRIMARY PRIMARY alWork s CARE CARE 2021-10-02 2021-10-02 Outpatient [facility] [id number] [facility] 08:00:00 08:00:00 PRIMARY PRIMARY alWork s CARE CARE 2021-06-12 2021-06-12 Outpatient [facility] [id number] [facility] 16:23:00 16:23:00 PRIMARY PRIMARY alWork s CARE CARE 2021-04-26 2021-04-26 Outpatient [facility] [id number] [facility]inic 09:35:00 09:35:00 PRIMARY PRIMARY alWork s CARE CARE 2021-04-17 2021-04-17 Outpatient DOMINGA NDIAYE [id number] Dominga 14:15:00 14:15:00 VENKAT dukes 2021-04-13 2021-04-13 Outpatient [facility] [id number] [facility]inic 10:20:00 10:20:00 PRIMARY PRIMARY alWork s CARE CARE 2021-04-11 2021-04-11 Outpatient [facility] [id number] [facility]inic 14:39:00 14:39:00 PRIMARY PRIMARY alWork s CARE CARE 2021-01-24 2021-01-24 Outpatient [facility] [id number] [facility]inic 10:00:00 10:00:00 PRIMARY PRIMARY alWork s CARE CARE 2020-09-26 2020-09-26 Outpatient [facility] [id number] [facility]inic 16:07:00 16:07:00 PRIMARY PRIMARY alWork s CARE CARE 2020-09-09 2020-09-09 Outpatient [facility] [id number] [facility]inic 15:09:00 15:09:00 PRIMARY PRIMARY alWork s CARE CARE 2020-06-01 2020-06-01 Outpatient [facility] [id number] [facility]inic 14:31:00 14:31:00 PRIMARY PRIMARY alWork s CARE CARE 2020-04-28 2020-04-28 Outpatient [facility] [id number] e[facility]inic 14:40:00 14:40:00 PRIMARY PRIMARY alWork s CARE CARE 2020-04-19 2020-04-19 Outpatient [facility] [id number] [facility]inic 08:10:00 08:10:00 PRIMARY PRIMARY alWork s CARE CARE 2020-04-14 2020-04-14 Outpatient [facility] [id number] e[facility]inic 09:16:00 09:16:00 PRIMARY PRIMARY alWork s CARE CARE 2020-03-05 2020-03-05 Outpatient [facility] [id number] e[facility]inic 09:53:00 09:53:00 PRIMARY PRIMARY alWork s CARE CARE 2019-10-27 2019-10-27 Outpatient [facility] [id number] eClinic 10:13:00 10:13:00 PRIMARY PRIMARY alWork s CARE CARE 2019-10-26 2019-10-26 Outpatient [facility] [id number] eClinic 11:24:00 11:24:00 PRIMARY PRIMARY alWork s CARE CARE 2019-10-25 2019-10-25 Outpatient [facility] [id number] eClinic 12:17:00 12:17:00 PRIMARY PRIMARY alWork s CARE CARE 2019-10-18 2019-10-18 Outpatient [facility] [id number] e[facility]inic 14:10:00 14:10:00 PRIMARY PRIMARY alWork s CARE CARE 2019-10-13 2019-10-13 Outpatient [facility] [id number] [facility]inic 08:30:00 08:30:00 PRIMARY PRIMARY alWork s CARE CARE 2019-09-10 2019-09-10 Outpatient [facility] [id number] e[facility]inic 15:44:00 15:44:00 PRIMARY PRIMARY alWork s CARE CARE 2019-07-27 2019-07-27 Outpatient Carmen Morales MD [id number] eClinic 08:10:00 08:10:00 [facility] 2019-07-23 2019-07-23 Outpatient Carmen Morales MD [id number] eClinic 21:08:00 21:08:00 [facility] 2019-07-22 2019-07-22 Outpatient Carmen Morales MD 272 [id number] eClinic 08:10:00 08:10:00 [facility] 2019-07-22 2019-07-22 Outpatient Carmen Morales MD 272 [id number] eClinic 08:10:00 08:10:00 [facility] Results Test Description Test Time Test Comments Results Result [facility] e Comments - XR PELVIS 07/292022-07-25 VIEWS 07:05:00 [facility] 1985 Sex: M Patient Name: ANDREW PETERS Unit No: [id number] EXAMS: CPT CODE: [id number] XR PELVIS 07/29 VIEWS 07560 INTRAOPERATIVE LEG LENGTH FILM COMMENT: COMPARISON: No prior exams available. In progress left hip replacement is noted. AP portable left hip COMMENT: The patient is status post joint replacement which is articulating normally. at 0705 Reported and signed by: Landry Joyce MD CC: Benjamin Paul Technologist: Singh Lacey(R) Transcribed D/ (0705) Gabriella [facility] NAME: ANDREW PETERS [address] [facility] PHYS: Benjamin No MD : 1985 AGE: 36 SEX: M [place], [place] [address] LOC: Y.316 A PHONE #: [phone] EXAM DATE: 07/24/2022 STATUS: ADM IN FAX #: [phone] RAD #: D/C DT PAGE 1 Signed Report Patient Name: ANDREW PETERS Unit No: [id number] EXAMS: CPT CODE: [id number] XR PELVIS 07/29 VIEWS 55498 (Continued) Orig Print D/T: S: 07/25/2022 (0708) [facility] NAME: ANDREW PETERS [address] [facility] PHYS: Benjamin No MD : 1985 AGE: 36 SEX: M [place], [place] [address] LOC: Y.316 A PHONE #: [phone] EXAM DATE: 07/24/2022 STATUS: ADM IN FAX #: [phone] RAD #: D/C DT PAGE 2 Signed Report - XR PELVIS 07/292022-07-25 VIEWS 07:05:[facility] 1985 Sex: M Patient Name: ANDREW PETERS Unit No: [id number] EXAMS: CPT CODE: [id number] XR PELVIS 1/2 VIEWS 90622 INTRAOPERATIVE LEG LENGTH FILM COMMENT: COMPARISON: No prior exams available. In progress left hip replacement is noted. AP portable left hip COMMENT: The patient is status post joint replacement which is articulating normally. at 0705 Reported and signed by: Landry Joyce MD CC: Benjamin Paul Technologist: ORIANA GAUTHIER ARRT Transcribed D/ (704) RebeccaL [facility] NAME: ANDREW PETERS [address] [facility] PHYS: Benjamin No MD : 1985 AGE: 36 SEX: [place] [address] LOC: Y.316 A PHONE #: [phone] EXAM DATE: 07/24/2022 STATUS: ADM IN FAX #: [phone] RAD #: D/C DT PAGE 1 Signed Report Patient Name: ANDREW PETERS Unit No: [id number] EXAMS: CPT CODE: [id number] XR PELVIS 1/2 VIEWS 71356 (Continued) Orig Print D/T: S: 07/25/2022 (707) [facility] NAME: ANDREW PETERS [address] [place] [address] PHYS: Benjamin No MD : 1985 AGE: 36 SEX: M [place] [address] LOC: Y.316 A PHONE #: [phone] EXAM DATE: 07/24/2022 STATUS: ADM IN FAX #: [phone] RAD #: D/C DT PAGE 2 Signed Report BASIC METABOLIC PANEL 2022-07-25 07:04:00 Test Item Value Reference Range Interpretation Comme nts SODIUM (test code = NA) 140 mmol/L 136-145 N POTASSIUM (test code = K) 4.5 mmol/L 3.5-5.1 N CHLORIDE (test code = CL) 102.0 mmol/L 98-107 N CARBON DIOXIDE (test code = 28.9 mmol/L 21-32 N CO2) GLUCOSE (test code = GLU) 111 mg/dL 70-110 H BLOOD UREA NITROGEN (test 14 mg/dL 7-18 N code = BUN) GLOMERULAR FILTRATION RATE 97.1 >60 T he Glomerular Filtration Rate (test code = GFR) is a calcu lated parameterbased on serum Creati nine, patient age and sex. GFR va luesless than 60 mL/min/1.73 squ are meters are indicative ofCh ronic Kidney Disease. Values less than 15 mL/min/1.73squa re meters indicate Kidney failure. The calculation for GFR is based on the CKD-EPI (20 21) calculation. This formulais race indifferent and is the paul mmended formula for GFRby the [facility] for Adults.The GFR will not calcul ate if the sex is unknown or if t hepatient's age is <18 years. CREATININE (test code = 1.02 mg/dL 0.55-1.30 N CREAT) CALCIUM (test code = CA) 9.2 mg/dL 8.2-10.1 N HGB [id number] 06:19:00 Test Item Value Reference Range Interpretation Comments HEMOGLOBIN (test code = HGB) 11.9 g/dL 12-16 L HEMATOCRIT (test code = HCT) 34.4 % 37-47 L SPECIMEN COMMENT: POD #1Hemoglobin and Hematocrit panel - [id number] 04:07:00 Test Item Value Reference Range Interpretation Comments hemoglobin (test code = hemoglobin) 11.9 g/dL 12-16 L hematocrit (test code = hematocrit) 34.4 % 37-47 L performing lab: (test code = performing lab:) [facility] - Blood 2022-07-25 04:07:00 Test Item Value Reference Range Interpretation Comments hemoglobin (test code = hemoglobin) 11.9 g/dL 12-16 L hematocrit (test code = hematocrit) 34.4 % 37-47 L performing lab: (test code = performing lab:) [facility] MedicinePROTHROMBIN [id number] 12:39:00 Test Item Value Reference Range Interpretation Comments PROTHROMBIN TIME 11.6 secs 9.7-12.5 N Please note new normal PATIENT (test code = range. PTP) INTERNATIONAL NORMAL 1.04 <2.0 RECOMME NDED THERAPEUTIC RATIO (test code = RANGE FOR ORAL INR) ANTICOAGULANTTR EATMENT: CONDITION INRProphylaxis of venous thrombosis in 2 .0 - 3.0 high-risk medic al or surgical patientsTreatme nt of venous thrombos is 2.0 - 3.0Prevention o f embolism 2.0 - 3.0Prevention o f recurrent embol ism, or 3.0 - 4.5 patie nts with mechanical pros thetic intravascular v loaiza IS PATIENT ON ANTICOAGULANTS ? NHas Lab been notified if Patient is on Heparin Drip? NOIf Yes, orderCBC, OCCULT BLOOD, PT every other day NTHROMBOPLASTIN TIME [id number] 12:39:00 Test Item Value Reference Range Interpretation Comments PTT ACTIVATED (test 37.4 secs 26.6-34.6 H Please n ote new code = APTT) normal range. IS PATIENT ON ANTICOAGULANTS ? NHas Lab been notified if Patient is on Heparin Drip? NOIf Yes, orderCBC, OCCULT BLOOD, PT every other day NCOMPREHENSIVE METABOLIC [id number] 12:37:00 Test Item Value Reference Range Interpretation Comments SODIUM (test code = 142 mmol/L 136-145 N NA) POTASSIUM (test 4.4 mmol/L 3.5-5.1 N code = K) CHLORIDE (test code 101.0 mmol/L 98-107 N = CL) CARBON DIOXIDE 31.4 mmol/L 21-32 N (test code = CO2) GLUCOSE (test code 91 mg/dL 70-110 N = GLU) BLOOD UREA NITROGEN 17 mg/dL 7-18 N (test code = BUN) GLOMERULAR 85.0 >60 The Glomerular FILTRATION RATE Filtration R ate is a (test code = GFR) calculated parameterbased on serum Creatinin e, patient age and sex. GFR valuesless than 60 mL/min/1.73 squ are meters are fabian cative ofChronic Kidne y Disease. Values less than 15 mL/min/1.73squa re meters indicate Kidney failure. The calculation for GFR is based on the CK D-EPI (2020) calculat ion. This formulais race indifferent and is the recommended for ryan for GFRby the [facility] on for Adults.The GFR will not calculate i f the sex is unknown or if thepatient's ag e is <18 years. CREATININE (test 1.14 mg/dL 0.55-1.30 N code = CREAT) TOTAL PROTEIN (test 7.9 g/dL 6.4-8.2 N code = PROT) ALBUMIN (test code 4.4 g/dL 3.4-5.0 N = ALB) GLOBULIN (test code 3.5 g/dL 2.2-4.2 N = GLOB) ALBUMIN/GLOBULIN 1.3 0.7-2.0 N RATIO (test code = A/G) CALCIUM (test code 10.0 mg/dL 8.2-10.1 N = CA) BILIRUBIN TOTAL 0.40 mg/dL 0.2-1.00 N (test code = BILT) SGOT/AST (test code 21.0 U/L 15-37 N = AST) SGPT/ALT (test code 41.0 U/L 12-78 N Please n ote new normal = ALT) range. ALKALINE 97 U/L 46-116 N PHOSPHATASE TOTAL (test code = ALKP) CBC W/AUTO [id number] 10:54:00 Test Item Value Reference Range Interpretation Comments WHITE BLOOD CELL (test code = WBC) 7.7 K/mm3 5.7-10.5 N RED BLOOD CELL (test code = RBC) 4.76 M/mm3 4.2-5.4 N HEMOGLOBIN (test code = HGB) 14.1 g/dL 12-16 N HEMATOCRIT (test code = HCT) 40.8 % 37-47 N MEAN CELL VOLUME (test code = MCV) 86 fL 80-98 N MEAN CELL HGB (test code = MCH) 29.6 pg 27-34 N MEAN CELL HGB CONCENTRATION (test 34.6 g/dL 30.8-34.1 H code = MCHC) RED CELL DISTRIBUTION WIDTH (test 11.9 % 11-16 N code = RDW) PLT (test code = PLT) 343 K/mm3 130-400 N MEAN PLATELET VOLUME (test code = 9.8 fL 8.9-12.1 N MPV) NEUTROPHIL % (test code = NT%) 53.9 % 45-70 N LYMPHOCYTE % (test code = LY%) 34.6 % 20-40 N MONOCYTE % (test code = MO%) 9.2 % 3-10 N EOSINOPHIL % (test code = EO%) 1.6 % 1-5 N BASOPHIL % (test code = BA%) 0.4 % 0.0-1.1 N NEUTROPHIL # (test code = NT#) 4.16 K/mm3 2.00-7.50 N LYMPHOCYTE # (test code = LY#) 2.67 K/mm3 1.50-4.00 N MONOCYTE # (test code = MO#) 0.71 K/mm3 0.2-0.8 N EOSINOPHIL # (test code = EO#) 0.12 K/mm3 0.04-0.4 N BASOPHIL # (test code = BA#) 0.03 K/mm3 0.02-0.10 N MANUAL DIFF REQUIRED (test code = NO MANUAL DIFF MDIFF) NUCLEATED RED BLOOD CELL (test 0 % 0-0 N code = NRBC) CBC W Auto Differential panel - [id number] 10:15:00 Test Item Value Reference Range Interpretation Comments white blood cell (test code = 7.7 K/mm3 5.7-10.5 white blood cell) red blood cell (test code = red 4.76 M/mm3 4.2-5.4 blood cell) hemoglobin (test code = 14.1 g/dL 12-16 hemoglobin) hematocrit (test code = 40.8 % 37-47 hematocrit) mean cell volume (test code = mean 86 fL 80-98 cell volume) mean cell HGB (test code = mean 29.6 pg 27-34 cell HGB) mean cell HGB concentration (test 34.6 g/dL 30.8-34.1 H code = mean cell HGB concentration) red cell distribution width (test 11.9 % 11-16 code = red cell distribution width) plt (test code = plt) 343 K/mm3 130-400 mean platelet volume (test code = 9.8 fL 8.9-12.1 mean platelet volume) neutrophil % (test code = 53.9 % 45-70 neutrophil %) lymphocyte % (test code = 34.6 % 20-40 lymphocyte %) monocyte % (test code = monocyte 9.2 % 3-10 %) eosinophil % (test code = 1.6 % 1-5 eosinophil %) basophil % (test code = basophil 0.4 % 0.0-1.1 %) neutrophil # (test code = 4.16 K/mm3 2.00-7.50 neutrophil #) lymphocyte # (test code = 2.67 K/mm3 1.50-4.00 lymphocyte #) monocyte # (test code = monocyte 0.71 K/mm3 0.2-0.8 #) eosinophil # (test code = 0.12 K/mm3 0.04-0.4 eosinophil #) basophil # (test code = basophil 0.03 K/mm3 0.02-0.10 #) manual diff required (test code = no manual diff manual diff required) nucleated red blood cell (test 0 % 0-0 code = nucleated red blood cell) performing lab: (test code = performing lab:) [facility] 2000 panel - Serum or [id number] 10:15:00 Test Item Value Reference Range Interpretation Comments sodium (test code = sodium) 142 mmol/L 136-145 potassium (test code = 4.4 mmol/L 3.5-5.1 potassium) chloride (test code = chloride) 101.0 mmol/L 98-107 carbon dioxide (test code = 31.4 mmol/L 21-32 carbon dioxide) glucose (test code = glucose) 91 mg/dL 70-110 blood urea nitrogen (test code = 17 mg/dL 7-18 blood urea nitrogen) glomerular filtration rate (test 85.0 >60 code = glomerular filtration rate) creatinine (test code = 1.14 mg/dL 0.55-1.30 creatinine) total protein (test code = total 7.9 g/dL 6.4-8.2 protein) albumin (test code = albumin) 4.4 g/dL 3.4-5.0 globulin (test code = globulin) 3.5 g/dL 2.2-4.2 albumin/globulin ratio (test 1.3 0.7-2.0 code = albumin/globulin ratio) calcium (test code = calcium) 10.0 mg/dL 8.2-10.1 bilirubin total (test code = 0.40 mg/dL 0.2-1.00 bilirubin total) SGOT/AST (test code = SGOT/AST) 21.0 U/L 15-37 SGPT/ALT (test code = SGPT/ALT) 41.0 U/L 12-78 alkaline phosphatase total (test 97 U/L 46-116 code = alkaline phosphatase total) performing lab: (test code = performing lab:) [facility] (PT[facility]2022-07-19 10:15:00 Test Item Value Reference Range Interpretation Comments prothrombin time patient (test code 11.6 secs 9.7-12.5 = prothrombin time patient) international normal ratio (test 1.04 <2.0 code = international normal ratio) performing lab: (test code = performing lab:) [facility]althromboplastin time [id number] 10:15:00 Test Item Value Reference Range Interpretation Comments PTT activated (test code = PTT 37.4 secs 26.6-34.6 H activated) performing lab: (test code = performing lab:) [facility] HospitalMethicillin resistant Staphylococcus aureus [Presence] in Specimen by Organism specific [id number] 10:15:00 Test Item Value Reference Range Interpretation Comments MRSA surveillance screen (test code see below = MRSA surveillance screen) performing lab: (test code = performing lab:) [facility] PCR surveillance [id number] 10:15:00 Test Item Value Reference Range Interpretation Comments mssa PCR surveillance screen (test see below code = mssa PCR surveillance screen) performing lab: (test code = performing lab:) [facility]CBC [facility] Auto Differential panel - [id number] 10:15:00 Test Item Value Reference Range Interpretation Comments white blood cell (test code = 7.7 K/mm3 5.7-10.5 white blood cell) red blood cell (test code = red 4.76 M/mm3 4.2-5.4 blood cell) hemoglobin (test code = 14.1 g/dL 12-16 hemoglobin) hematocrit (test code = 40.8 % 37-47 hematocrit) mean cell volume (test code = mean 86 fL 80-98 cell volume) mean cell HGB (test code = mean 29.6 pg 27-34 cell HGB) mean cell HGB concentration (test 34.6 g/dL 30.8-34.1 H code = mean cell HGB concentration) red cell distribution width (test 11.9 % 11-16 code = red cell distribution width) plt (test code = plt) 343 K/mm3 130-400 mean platelet volume (test code = 9.8 fL 8.9-12.1 mean platelet volume) neutrophil % (test code = 53.9 % 45-70 neutrophil %) lymphocyte % (test code = 34.6 % 20-40 lymphocyte %) monocyte % (test code = monocyte 9.2 % 3-10 %) eosinophil % (test code = 1.6 % 1-5 eosinophil %) basophil % (test code = basophil 0.4 % 0.0-1.1 %) neutrophil # (test code = 4.16 K/mm3 2.00-7.50 neutrophil #) lymphocyte # (test code = 2.67 K/mm3 1.50-4.00 lymphocyte #) monocyte # (test code = monocyte 0.71 K/mm3 0.2-0.8 #) eosinophil # (test code = 0.12 K/mm3 0.04-0.4 eosinophil #) basophil # (test code = basophil 0.03 K/mm3 0.02-0.10 #) manual diff required (test code = no manual diff manual diff required) nucleated red blood cell (test 0 % 0-0 code = nucleated red blood cell) performing lab: (test code = performing lab:) [facility]Com[facility] 2000 panel - Serum or [id number] 10:15:00 Test Item Value Reference Range Interpretation Comments sodium (test code = sodium) 142 mmol/L 136-145 potassium (test code = 4.4 mmol/L 3.5-5.1 potassium) chloride (test code = chloride) 101.0 mmol/L 98-107 carbon dioxide (test code = 31.4 mmol/L 21-32 carbon dioxide) glucose (test code = glucose) 91 mg/dL 70-110 blood urea nitrogen (test code = 17 mg/dL 7-18 blood urea nitrogen) glomerular filtration rate (test 85.0 >60 code = glomerular filtration rate) creatinine (test code = 1.14 mg/dL 0.55-1.30 creatinine) total protein (test code = total 7.9 g/dL 6.4-8.2 protein) albumin (test code = albumin) 4.4 g/dL 3.4-5.0 globulin (test code = globulin) 3.5 g/dL 2.2-4.2 albumin/globulin ratio (test 1.3 0.7-2.0 code = albumin/globulin ratio) calcium (test code = calcium) 10.0 mg/dL 8.2-10.1 bilirubin total (test code = 0.40 mg/dL 0.2-1.00 bilirubin total) SGOT/AST (test code = SGOT/AST) 21.0 U/L 15-37 SGPT/ALT (test code = SGPT/ALT) 41.0 U/L 12-78 alkaline phosphatase total (test 97 U/L 46-116 code = alkaline phosphatase total) performing lab: (test code = performing lab:) [facility]Pro[facility] (PT)2022-07-19 10:15:00 Test Item Value Reference Range Interpretation Comments prothrombin time patient (test code 11.6 secs 9.7-12.5 = prothrombin time patient) international normal ratio (test 1.04 <2.0 code = international normal ratio) performing lab: (test code = performing lab:) [facility]althromboplastin time [id number] 10:15:00 Test Item Value Reference Range Interpretation Comments PTT activated (test code = PTT 37.4 secs 26.6-34.6 H activated) performing lab: (test code = performing lab:) [facility] HospitalMethicillin resistant Staphylococcus aureus [Presence] in Specimen by Organism specific [id number] 10:15:00 Test Item Value Reference Range Interpretation Comments MRSA surveillance screen (test code see below = MRSA surveillance screen) performing lab: (test code = performing lab:) [facility] PCR surveillance [id number] 10:15:00 Test Item Value Reference Range Interpretation Comments mssa PCR surveillance screen (test see below code = mssa PCR surveillance screen) performing lab: (test code = performing lab:) [facility]- MRI L-SPINE W/O [id number] 11:01:00 [facility] 1985 Sex: MPatient Name: ANDREW PETERS Unit No: [id number] EXAMS: CPT CODE: [id number] MRI L- SPINE W/OCONT [id number] DIAGNOSIS: 1. At L1-2 there is no evidence for disc bulge or herniation, bony canal or foraminal stenosis. 2. At L2-3 there is no evidence for disc herniation. Mild canal stenosis is seen with facet degeneration. There is no evidence for foraminal narrowing. 3. At L3-4 there is no evidence for disc bulge or herniation. Mild left foraminal narrowing is seen without right-sided stenosis. Mild canal stenosis is present with facet hypertrophy. 4. At L4-5 there is 3 mm of central disc protrusion with caudal extrusion compressing the thecal sac and impinging on the L5 nerve roots. Moderate to marked canal stenosis is seen with facet degeneration. Mild foraminal narrowing is present. 5. At L5-S1 there is 4 mm of central disc protrusion and mild canal stenosis with facet degeneration. Moderateto marked left and moderate right foraminal narrowing is present. COMMENT: COMPARISON: No prior exams available. Scans were performed in the sagittal and axial planes utilizing T1, T2 and inversion rec overy images. Endplate and disc degeneration is seen from L4 to S1. There is a scoliosis convex left. Disc configurations are as described. Spondylitic changes are as noted. The conus is in the expected location. The description these findings assumes a normal count of 5 lumbar type vertebra. at 1101 Reported and signed by: Landry Joyce MD CC: Larissa Cooney M.D. Technologist: Singh Garcia(R) Transcribed D/ (1101) [facility] NAME: ANDREW PETERS [address] [facility] PHYS: Barrett Carbajal MD : 1985 AGE: 36 SEX: M [place], [place] [address] LOC: YAishaMRI PHONE #: [phone] EXAM DATE: 04/15/2022 STATUS: REG CLI FAX #: [phone] RAD #: D/C DT PAGE 1 Signed Report Patient Name: ANDREW PETERS Unit No: [id number] EXAMS: CPT CODE: [id number] MRI L- SPINE W/O CONT [id number] (Continued) Orig Print D/T: S: 04/15/2022 (1104) [facility] NAME: ANDREW PETERS [address] [facility] PHYS: Barrett Carbajal MD : 1985 AGE: 36 SEX: Zoya [place], [place] [address] LOC: Y.MRI PHONE #: [phone] EXAM DATE: 04/15/2022 STATUS: REG CLI FAX #: [phone] RAD #: D/C DT PAGE 2 Signed ReportPost-Vas Sperm Evaluation, [id number] 18:31:00 Test Item Value Reference Range Interpretation Comments POST-VAS NONE SEEN NONE SEEN Performed on SPERM, QUAL concentrated (test code = specimen. 85243-2) RAC (test Performing code = RAC) Organization Information: Site ID: [id number] Address: [address] [place], [place] [id number] Director[facility]Post[facility] Sperm Evaluation, [id number] 18:31:00 Test Item Value Reference Range Interpretation Comments POST-VAS NONE SEEN NONE SEEN Performed on SPERM, QUAL concentrated (test code = specimen. 99562-4) RAC (test Performing code = RAC) Organization Information: Site ID: [id number] Name[facility] Address: [address] [place] [id number] Director: [facility]
[2022-12-04] MEDS ORDERED: HYDROCODONE/APAP 7.5/325 MG TAB ONE (18:58)
--- NOTE | 2022-12-04 19:41 | ER ---
Nurse's Notes [facility] Name: Primo Turcios Age: 36 yrs Sex: Male : 1985 Arrival Date: 12/04/2022 Time: 18:04 Bed 20 Private MD: Diagnosis: Encounter for change or removal of surgical wound dressing Presentation: 12/04 18:25 Chief complaint: Patient states: pilonidal cyst surgery yesterday and today has db bleeding since 1600. Has soaked through a dressing. Pain with sitting. Coronavirus screen: Vaccine status: Patient reports receiving the 2nd dose of the covid vaccine. Client denies travel out of the [place] in the last 14 days. At this time, the client does not indicate any symptoms associated with coronavirus-19. Ebola Screen: Patient negative for fever greater than or equal to 101.5 degrees Fahrenheit, and additional compatible Ebola Virus Disease symptoms Patient denies exposure to infectious person. Patient denies travel to an Ebola-affected area in the 21 days before illness onset. No symptoms or risks identified at this time. Initial Sepsis Screen: Does the patient meet any 2 criteria? No. Patient's initial sepsis screen is negative. Does the patient have a suspected source of infection? Yes: Skin breakdown/wound. Risk Assessment: Do you want to hurt yourself or someone else? Patient reports no desire to harm self or others. Onset of symptoms was December 04, 2022. 18:25 Method Of Arrival: Ambulatory db 18:25 Acuity: LORRAINE 3 db Triage Assessment: 18:29 General: Appears in no apparent distress. comfortable, Behavior is calm, cooperative. db Pain: Complains of pain in buttocks. Historical: - Allergies: 18:29 No Known Allergies; db - PMHx: 18:29 Hypertensive disorder; db - Immunization history:: Client reports receiving the 2nd dose of the Covid vaccine. - Social history:: Smoking status: Patient denies any tobacco usage or history of. Screenin:45 [facility] ED Fall Risk Assessment (Adult) Score/Fall Risk Level 0 - 2 = Low Risk. Abuse eh3 screen: Denies threats or abuse. Denies injuries from another. Nutritional screening: No deficits noted. Tuberculosis screening: No symptoms or risk factors identified. Assessment: 18:45 General: Appears in no apparent distress. uncomfortable, Behavior is calm, cooperative, eh3 appropriate for age. Pain: Complains of pain in buttocks. Neuro: Level of Consciousness is awake, alert, obeys commands, Oriented to person, place, time, situation. Cardiovascular: Capillary refill < 3 seconds Patient's skin is warm and dry. Respiratory: Airway is patent Respiratory effort is even, unlabored, Respiratory pattern is regular, symmetrical. GI: Abdomen is round non-distended. : No signs and/or symptoms were reported regarding the genitourinary system. EENT: No signs and/or symptoms were reported regarding the EENT system. Derm: Skin is pink, warm \T\ dry. Wound noted buttocks. Musculoskeletal: Circulation, motion, and sensation intact. Vital Signs: 18:25 BP 148 / 98; Pulse 90; Resp 18; Temp 98.4; Pulse Ox 99% ; Weight 102.06 kg; Height 5 db ft. 10 in. ; Pain 1/10; 18:25 Body Mass Index 32.28 (102.06 kg, 177.8 cm) db 18:25 Pain Scale: Adult db ED Course: 18:05 Patient arrived in ED. ts1 18:29 Triage completed. db 18:29 Arm band placed on right wrist. db 18:36 Brett Lopez PA is PHCP. cp 18:36 Sylvester Jacobson MD is Attending Physician. cp 18:45 Patient has correct armband on for positive identification. Bed in low position. Call 3 light in reach. Side rails up X2. Pulse ox on. NIBP on. Door closed. Noise minimized. Lights dimmed. 18:47 Sunshine Rao, TORSTEN is Primary Nurse. eh3 19:00 Report given to Wes Lima RN. 3 19:45 Patient did not have IV access during this emergency room visit. mb9 Administered Medications: 18:52 Drug: Hydrocodone-Acetaminophen PO (7.5 mg-325 mg) 1 tabs Route: PO; eh3 19:30 Follow up: Response: No adverse reaction 3 Outcome: 19:40 Discharge ordered by . cp 19:45 Discharged to home ambulatory. mb9 19:45 Condition: stable 19:45 Discharge instructions given to patient, Instructed on discharge instructions, follow up and referral plans. Demonstrated understanding of instructions, follow-up care. 19:45 Patient left the ED. mb9 Signatures: Brett Lopez PA PA cp Hall, Erin, RN RN eh3 Tamie Jackson, RN RN db Jennifer Cortes, RN RN mb9 Casie Anne PAS PAS ts1
--- NOTE | 2022-12-04 19:41 | EDPHYS ---
Physician Documentation [facility] Name: Primo Turcios Age: 36 yrs Sex: Male : 1985 Arrival Date: 12/04/2022 Time: 18:04 Bed 20 Private MD: ED Physician Sylvester Jacobson HPI: 12/04 19:00 This 36 yrs old Male presents to ER via Ambulatory with complaints of Post Surgical cp Bleeding. 19:00 Patient is a 36-year-old male who presents to the emergency department with concerns of cp increased bleeding from his surgical wound. Patient reports having a pilonidal cyst drained yesterday by Dr. Bolivar located in [place]. There were no complications from the procedure and patient reports that she was driving today he observed increased bleeding from the surgical site and became concerned. Historical: - Allergies: 18:29 No Known Allergies; db - PMHx: 18:29 Hypertensive disorder; db - Immunization history:: Client reports receiving the 2nd dose of the Covid vaccine. - Social history:: Smoking status: Patient denies any tobacco usage or history of. ROS: 19:05 Constitutional: Negative for body aches, chills, fever, poor PO intake. cp 19:05 Eyes: Negative for injury, pain, redness, and discharge. cp 19:05 Respiratory: Negative for cough, shortness of breath. 19:05 Abdomen/GI: Negative for abdominal pain. 19:05 Skin: Positive for bleeding from surgical wound. 19:05 Neuro: Negative for altered mental status, dizziness, headache, weakness. 19:05 All other systems are negative. Exam: 19:10 Constitutional: The patient appears in no acute distress, alert, awake, non-toxic, well cp developed, well nourished, uncomfortable. 19:10 Head/Face: Normocephalic, atraumatic. cp 19:10 Chest/axilla: Inspection: normal. 19:10 Cardiovascular: Rate: normal. 19:10 Respiratory: the patient does not display signs of respiratory distress, Respirations: normal, no use of accessory muscles, no retractions, labored breathing, is not present. 19:10 Abdomen/GI: Exam negative for discomfort, distension, guarding, Inspection: abdomen appears normal. 19:10 Skin: Wound recheck: dressing removed from surgical wound of right buttock appears with minimal bleeding and swelling, no erythema noted. Vital Signs: 18:25 BP 148 / 98; Pulse 90; Resp 18; Temp 98.4; Pulse Ox 99% ; Weight 102.06 kg; Height 5 db ft. 10 in. ; Pain 1/10; 18:25 Body Mass Index 32.28 (102.06 kg, 177.8 cm) db 18:25 Pain Scale: Adult db MDM: 18:38 Patient medically screened. cp 19:40 Data reviewed: vital signs, nurses notes. cp 19:40 I considered the following discharge prescriptions or medication management in the cp emergency department Medications were administered in the Emergency Department. See MAR. Counseling: I had a detailed discussion with the patient and/or guardian regarding: the historical points, exam findings, and any diagnostic results supporting the discharge/admit diagnosis, to return to the emergency department if symptoms worsen or persist or if there are any questions or concerns that arise at home. Response to treatment: the patient's symptoms have markedly improved after treatment, and as a result, I will discharge patient. ED course: surgical wound packed with 1 inch iodoform gauze and 4 by 4 dressing applied. Administered Medications: 18:52 Drug: Hydrocodone-Acetaminophen PO (7.5 mg-325 mg) 1 tabs Route: PO; eh3 19:30 Follow up: Response: No adverse reaction [facility] Disposition: 12/05 08:58 Co-signature as Attending Physician, Sylvester Jacobson MD I reviewed the patient's care rt provided by the Advanced Practice Provider and agree with the diagnosis and treatment plan. Disposition Summary: 12/04/22 19:40 Discharge Ordered Location: Home cp Problem: new cp Symptoms: have improved cp Condition: Stable cp Diagnosis - Encounter for change or removal of surgical wound dressing cp Followup: cp - With: Private Physician - When: 2 - 3 days - Reason: Wound Recheck Discharge Instructions: - Discharge Summary Sheet cp - How to Change Your Wound Dressing cp - Wound Care, Adult cp Forms: - Medication Reconciliation Form cp - Thank You Letter cp - Antibiotic Education cp - Prescription Opioid Use cp Signatures: Brett Lopez PA PA cp Hall, Erin, RN RN 3 Tamie Jackson RN RN Sylvester Coburn MD MD rt
[2022-12-04 19:50] VITALS: BP 148/98; TEMP 98.4; O2SAT 99
== END 2022-12-04 19:45 | disposition home or self-care (01) ==
LOC: ER 18:04
DX: Z48.01 Encounter for change or removal of surgical wound dressing (principal)